=== PATIENT | female | born 1975 | race Caucasian/White ===

== ENCOUNTER 2018-03-20 11:58 | Emergency (ER) | payer SELFPAY ==
[2018-03-20 12:49] LABS: ADD MAN DIFF? NO
[2018-03-20 12:52] LABS: BASOPHIL # 0.1 10^3/ul (0.0-0.1); BASOPHILS % 0.4 % (0.0-2.0); EOSINOPHILS % 0.1 % (0.0-7.0); HEMATOCRIT 37.1 % (37.0-47.0); HEMOGLOBIN 12.2 g/dl (12.0-16.0); LYMPHOCYTES # 1.6 10^3/ul (0.8-2.9); LYMPHOCYTES % 13.9 % (15.0-51.0); MEAN CORPUSCULAR HEMOGLOBIN 25.7 pg (29.0-33.0); MEAN CORPUSCULAR HGB CONC 32.9 g/dl (32.0-37.0); MEAN CORPUSCULAR VOLUME 78.1 fl (82.0-101.0); MEAN PLATELET VOLUME 10.1 fl (7.4-10.4); MONOCYTE # 0.7 10^3/ul (0.3-0.9); NEUTROPHILS % 79.3 % (39.0-77.0); PLATELET COUNT 302 10^3/UL (140-415); RED BLOOD COUNT 4.75 10^6/ul (4.20-5.40); RED CELL DISTRIBUTION WIDTH 15.1 % (11.5-14.5)
[2018-03-20 12:52] LABS: WHITE BLOOD COUNT 11.3 10^3/ul (4.8-10.8)
[2018-03-20] MEDS: LORAZEPAM 1 MG TAB PO (12:54)
[2018-03-20] MEDS: SOD CHLORIDE 0.9% 1,000 ML IV (12:55)
[2018-03-20 13:11] LABS: ANION GAP 14 (8-16); BLOOD UREA NITROGEN 8 mg/dl (7-20); CARBON DIOXIDE 21 mmol/L (21-31); CHLORIDE 107 mmol/L (97-110); CREATININE 0.71 mg/dl (0.44-1.00); GLUCOSE 125 mg/dl (70-220); MAGNESIUM 1.9 mg/dl (1.7-2.5); POTASSIUM 3.6 mmol/L (3.5-5.1); SODIUM 138 mmol/L (135-144)
[2018-03-20 13:12] LABS: ETHANOL < 10.0 mg/dl
[2018-03-20 13:23] LABS: TROPONIN-I < 0.010 ng/ml (0.000-0.120)
[2018-03-20 13:44] LABS: BARBITURATES Negative (NEGATIVE); BENZODIAZEPINES Negative (NEGATIVE); CANNABINOIDS Negative (NEGATIVE); COCAINE Positive (NEGATIVE); OPIATES Negative (NEGATIVE)
[2018-03-20 13:59] LABS: AMPHETAMINE/METHAMPHETAMINE POSITIVE (NEGATIVE)
== END 2018-03-20 14:33 | disposition home or self-care (01) ==
LOC: E/R 11:58
DX: F41.9 Anxiety disorder, unspecified (principal); F19.10 Other psychoactive substance abuse, uncomplicated; R07.89 Other chest pain
CPT/HCPCS: 36415; 80048; 80307; 81025; 83735; 84484; 85025; 93005; 99284-25

== ENCOUNTER 2018-07-15 01:46 | Emergency (ER) | payer SELFPAY | END 2018-07-15 02:05 | disposition left against medical advice (07) | LOC: FTE 01:46 | DX: Z53.21 Procedure and treatment not carried out due to patient leaving prior to being seen by health care provider (principal) ==

== ENCOUNTER 2019-04-04 08:28 | Emergency (ER) | payer SELFPAY ==
[2019-04-04 09:04] LABS: URINE PH (Dip) POC 5.5 (5.0-8.5)
[2019-04-04 09:04] LABS: URINE BLOOD (Dip) POC 2+ (NEGATIVE); URINE GLUCOSE (Dip) POC Negative (NEGATIVE); URINE KETONES (Dip) POC Trace (NEGATIVE); URINE LEUKOCYTE EST (Dip) POC 1+ (NEGATIVE); URINE NITRITE (Dip) POC Negative (NEGATIVE); URINE TOTAL PROTEIN POC 1+ (NEGATIVE)
== END 2019-04-04 09:31 | disposition home or self-care (01) ==
LOC: FTE 08:28
DX: R35.8 Other polyuria (principal)
CPT/HCPCS: 81003; 81025; 82962; 99283